=== PATIENT | male | born 1995 | race American Indian/Alaskan Native ===

== ENCOUNTER 2018-07-25 16:29 | Emergency (ER) | payer BC ==
[2018-07-25 16:34] VITALS: BMI 33.5
[2018-07-25 16:38] VITALS: RESP 18
[2018-07-25] MEDS ORDERED: TDAP Vaccine 0.5 mL Syr IM ONE (17:23)
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
[2018-07-25] MEDS ORDERED: Lidocaine 1% Inj (20ml) IJ STA (19:51)
[2018-07-25] MEDS ORDERED: Lidocaine 1% 5ml Abboject IV ONE (19:53)
[2018-07-25] MEDS ORDERED: Tobramycin 0.3% OPH OINT OD STA (21:09)
[2018-07-25 21:15] VITALS: BP 134/76; PULSE 54; TEMP 98.5; O2SAT 100
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
--- NOTE | 2018-08-11 00:43 | OP ---
PROCEDURE DATE: 07/25/2018 SURGEON: Lenin Werner MD PREOPERATIVE DIAGNOSIS: A 3 cm right upper eyelid laceration. POSTOPERATIVE DIAGNOSIS: A 3 cm right upper eyelid laceration. PROCEDURE PERFORMED: Complex repair of 3 cm right upper eyelid laceration. ANESTHESIA: Local. INDICATIONS FOR THE PROCEDURE: As follows, please refer to my separately dictated ER consultation for history and physical. DESCRIPTION OF PROCEDURE: As follows, 1% lidocaine with 1:100,000 epinephrine was used locally in right upper eyelid. After allowing sufficient time for the anesthetic to take effect, the wound was thoroughly irrigated with normal saline, any retained debris was manually removed. The area was prepped and draped in usual clean and sterile manner. I debrided the irregular skin edges with scissor technique. I used a 5-0 Monocryl I approximated the orbicularis oculi muscle in interrupted fashion, 5-0 Monocryl for a couple of deep dermal sutures and running suture for the 3 cm epidermis closure. After doing this, wound edges were nicely aligned. The patient tolerated the procedure well and then he was discharged to home from the emergency room in stable condition, postop wound care, limitation of physical activities, and the fact there will be a scar the prognosis of which is unknown was discussed with the patient and his mother and all questions were answered. Lenin Werner MD
== END 2018-07-25 21:20 | disposition home or self-care (01) ==
LOC: ED 16:29
DX: S01.111A Laceration without foreign body of right eyelid and periocular area, initial encounter (principal); S00.83XA Contusion of other part of head, initial encounter; Y04.0XXA Assault by unarmed brawl or fight, initial encounter; Z23 Encounter for immunization; F17.210 Nicotine dependence, cigarettes, uncomplicated

== ENCOUNTER 2018-08-24 15:10 | Emergency (ER) | payer BC ==
[2018-08-24 16:45] VITALS: O2SAT 99
[2018-08-24 16:47] VITALS: BMI 34.2
[2018-08-24] MEDS ORDERED: cefTRIAXone (Rocephin) 250 mg Inj IM STA (17:55)
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
[2018-08-24 18:45] LABS: URINE BILIRUBIN NEGATIVE (NEGATIVE); URINE BLOOD TRACE-INTACT (NEGATIVE); URINE GLUCOSE (UA) NEGATIVE (NEGATIVE); URINE LEUKOCYTE ESTERASE NEGATIVE Leu/uL (NEGATIVE); URINE PROTEIN 30 mg/dL (<30 mg/dL); URINE UROBILINOGEN 0.2 E.U./dL (<1 E.U./dL)
[2018-08-24 18:46] LABS: URINE APPEARANCE CLEAR (CLEAR); URINE COLOR YELLOW (YELLOW)
[2018-08-24 19:49] VITALS: RESP 16
[2018-08-24 19:50] VITALS: BP 121/72; PULSE 82; TEMP 98.2
--- NOTE | 2018-08-25 09:09 | RAD ---
PROCEDURE: Right Hand Radiographs. HISTORY: r knuckle pain COMPARISON: None. FINDINGS: BONES: Bone alignment and mineralization are normal. There is no acute displaced fracture or bone destruction. JOINTS: Normal. No osteoarthritic changes. SOFT TISSUES: Normal. OTHER FINDINGS: None. IMPRESSION: No acute fracture or dislocation.
== END 2018-08-24 19:51 | disposition home or self-care (01) ==
LOC: ED 15:10
DX: A63.0 Anogenital (venereal) warts (principal); F17.210 Nicotine dependence, cigarettes, uncomplicated
CPT/HCPCS: 73130; 81001; 87491; 87591; 96372; 99284; J0696